=== PATIENT | male | born 1965 | race Caucasian/White ===

== ENCOUNTER → 2024-02-23 07:35 | Outpatient (REF) | payer OTHER, SELFPAY | LOC: EMG 07:35 | PROVIDERS: ATTENDING PHYSICIAN Family Medicine | DX: R20.2 Paresthesia of skin (principal); R20.0 Anesthesia of skin | CPT/HCPCS: 95886; 95911 ==

== ENCOUNTER → 2024-07-05 07:00 | Outpatient (REF) | payer OTHER, SELFPAY | LOC: MRI 07:00 | PROVIDERS: ATTENDING PHYSICIAN Physical Medicine & Rehabilitation Pain Medicine; FAMILY PHYSICIAN Family Medicine | DX: M54.2 Cervicalgia (principal); R20.2 Paresthesia of skin; G95.9 Disease of spinal cord, unspecified | CPT/HCPCS: 72141 ==

== ENCOUNTER → 2025-03-13 16:38 | Outpatient (REF) | payer OTHER, SELFPAY | LOC: RAD 16:38 | PROVIDERS: ATTENDING PHYSICIAN Family Medicine | DX: R07.81 Pleurodynia (principal) | CPT/HCPCS: 71101 ==